=== PATIENT | female | born 1990 | race Caucasian/White ===

== ENCOUNTER 2017-10-29 00:59 | Emergency (ER) | payer OTHER ==
[~2017-10-29] VITALS: Ht 165.1 cm; Wt 86.0 kg
[2017-10-29 01:03] VITALS: Ht 165.1 cm; Wt 86.0 kg
[2017-10-29 02:25] LABS: URINE BLOOD (Dip) POC Negative (NEGATIVE)
[2017-10-29] MEDS ORDERED: KETOROLAC 30 MG INJ IV STA (02:36)
[2017-10-29] MEDS ORDERED: SOD CHLORIDE 0.9% 1,000 ML IV STA (02:36)
[2017-10-29 02:56] LABS: BASOPHILS % 0.3 % (0.0-2.0); EOSINOPHILS % 0.3 % (0.0-7.0); HEMATOCRIT 38.6 % (37.0-47.0); HEMOGLOBIN 13.4 g/dl (12.0-16.0); LYMPHOCYTES # 1.2 10^3/ul (0.8-2.9); MEAN CORPUSCULAR HEMOGLOBIN 32.2 pg (29.0-33.0); MEAN CORPUSCULAR HGB CONC 34.7 g/dl (32.0-37.0); MEAN CORPUSCULAR VOLUME 92.8 fl (82.0-101.0); MEAN PLATELET VOLUME 9.9 fl (7.4-10.4); MONOCYTE # 1.1 10^3/ul (0.3-0.9); MONOCYTES % 9.5 % (0.0-11.0); NEUTROPHIL # 8.8 10^3/ul (1.6-7.5); NEUTROPHILS % 78.5 % (39.0-77.0); PLATELET COUNT 185 10^3/UL (140-415); RED BLOOD COUNT 4.16 10^6/ul (4.20-5.40); RED CELL DISTRIBUTION WIDTH 12.4 % (11.5-14.5); WHITE BLOOD COUNT 11.2 10^3/ul (4.8-10.8)
[2017-10-29 03:00] LABS: ADD UMIC NO; UR ASCORBIC ACID 20 mg/dL (NEGATIVE); UR BILIRUBIN (Dip) NEGATIVE (NEGATIVE); UR BLOOD (Dip) NEGATIVE (NEGATIVE); UR CLARITY CLEAR (CLEAR); UR COLOR YELLOW (YELLOW); UR GLUCOSE (Dip) NEGATIVE (NEGATIVE); UR KETONES (Dip) NEGATIVE (NEGATIVE); UR LEUKOCYTE ESTERASE (Dip) NEGATIVE Leu/ul (NEGATIVE); UR NITRITE (Dip) NEGATIVE (NEGATIVE); UR SPECIFIC GRAVITY (Dip) 1.012 (1.003-1.030); UR TOTAL PROTEIN (Dip) NEGATIVE (NEGATIVE); UR UROBILINOGEN (Dip) NEGATIVE (NEGATIVE)
[2017-10-29] MEDS ORDERED: ACETAMINOPHEN 325 MG TAB PO ONE (03:00)
--- NOTE | 2017-10-29 03:04 | ERD ---
ER Documentation Chief Complaint Chief Complaint flank pain since thursday; diff urinating x 1wk; fever today; tylenol 2130 HPI 27-year-old female presents here to emergency department for complaints of right flank pain radiating to the right lower quadrant that started today and fever. Patient has been having dysuria one week ago, was taking cranberry juice with only mild relief. Patient denies any nausea vomiting diarrhea or constipation. Patient denies any sick contacts. Patient denies any cough runny nose nasal congestion. ROS All systems reviewed and are negative except as per history of present illness. Medications Home Meds Reported Medications [none] Unknown Strength No Conflict Check 10/29/17 Allergies Allergies: Coded Allergies: No Known Allergy (Unverified , 10/29/17) PMhx/Soc Medical and Surgical Hx: pt denies Surgical Hx History of Surgery: No Anesthesia Reaction: No Hx Neurological Disorder: No Hx Respiratory Disorders: No Hx Cardiac Disorders: No Hx Psychiatric Problems: No Hx Miscellaneous Medical Probl: Yes (UTIs) Hx Alcohol Use: No Hx Substance Use: No Hx Tobacco Use: No Smoking Status: Never smoker FmHx Family History: No coronary disease, No diabetes, No other Physical Exam Vitals Vital Signs Date Time Temp Pulse Resp B/P Pulse Ox O2 Delivery O2 Flow Rate FiO2 10/29/17 01:03 101.7 110 20 126/58 100 Physical Exam GENERAL: The patient is well developed and appropriate for usual state of health, in no apparent distress. CHEST: Clear to auscultation bilaterally. There are no rales, wheezes or rhonchi. HEART: Regular rate and rhythm. No murmurs, clicks, rubs or gallops. No S3 or S4. ABDOMEN: Soft, nontender and nondistended. Good bowel sounds. No rebound or guarding. No gross peritonitis. No gross organomegaly or masses. No Olivares sign or McBurney point tenderness. BACK: No midline or flank tenderness. EXTREMITIES: Equal pulses bilaterally. There is no peripheral clubbing, cyanosis or edema. No focal swelling or erythema. Full range of motion. Grossly neurovascularly intact. NEURO: Alert and oriented. Cranial nerves 2-12 intact. Motor strength in all 4 extremities with 5/5 strength. Sensation grossly intact. Normal speech and gait. SKIN: There is no apparent rash or petechia. The skin is warm and dry. HEMATOLOGIC AND LYMPHATIC: There is no evidence of excessive bruising or lymphedema. No gross cervical, axillary, or inguinal lymphadenopathy. Result Diagram: 10/29/17 0245 10/29/17 0245 Results 24 hrs Laboratory Tests Test 10/29/17 02:25 10/29/17 02:45 Bedside Urine pH (LAB) 7.0 Bedside Urine Protein (LAB) Negative Bedside Urine Glucose (UA) Negative Bedside Urine Ketones (LAB) Negative Bedside Urine Blood Negative Bedside Urine Nitrite (LAB) Negative Bedside Urine Leukocyte Esterase (L Trace White Blood Count 11.210^3/ul Red Blood Count 4.1610^6/ul Hemoglobin 13.4g/dl Hematocrit 38.6% Mean Corpuscular Volume 92.8fl Mean Corpuscular Hemoglobin 32.2pg Mean Corpuscular Hemoglobin Concent 34.7g/dl Red Cell Distribution Width 12.4% Platelet Count 62029^3/UL Mean Platelet Volume 9.9fl Neutrophils % 78.5% Lymphocytes % 11.0% Monocytes % 9.5% Eosinophils % 0.3% Basophils % 0.3% Nucleated Red Blood Cells % 0.0/100WBC Neutrophils # 8.810^3/ul Lymphocytes # 1.210^3/ul Monocytes # 1.110^3/ul Eosinophils # 0.010^3/ul Basophils # 0.010^3/ul Nucleated Red Blood Cells # 0.010^3/ul Urine Color YELLOW Urine Clarity CLEAR Urine pH 8.0 Urine Specific [place] 1.012 Urine Ketones NEGATIVEmg/dL Urine Nitrite NEGATIVEmg/dL Urine Bilirubin NEGATIVEmg/dL Urine Urobilinogen NEGATIVEmg/dL Urine Leukocyte Esterase NEGATIVELeu/ul Urine Hemoglobin NEGATIVEmg/dL Urine Glucose NEGATIVEmg/dL Urine Total Protein NEGATIVEmg/dl Sodium Level 140mmol/L Potassium Level 4.2mmol/L Chloride Level 104mmol/L Carbon Dioxide Level 25mmol/L Anion Gap 15 Blood Urea Nitrogen 9mg/dl Creatinine 0.69mg/dl Glucose Level 111mg/dl Calcium Level 9.3mg/dl Total Bilirubin 0.5mg/dl Direct Bilirubin 0.00mg/dl Indirect Bilirubin 0.5mg/dl Aspartate Amino Transf (AST/SGOT) 18IU/L Alanine Aminotransferase (ALT/SGPT) 32IU/L Alkaline Phosphatase 77IU/L Total Protein 7.2g/dl Albumin 4.3g/dl Globulin 2.90g/dl Albumin/Globulin Ratio 1.48 Lipase 63U/L Current Medications Medications (Trade) Dose Ordered Sig/Eloy Route PRN Reason Start Time Stop Time Status Last Admin Dose Admin Sodium Chloride (NS) 1,000 ml @ 1,000 mls/hr Q1H STAT IV 10/29/17 02:36 10/29/17 03:35 DC 10/29/17 02:51 Ketorolac Tromethamine (Toradol) 30 mg ONCE STAT IV 10/29/17 02:36 10/29/17 02:38 DC 10/29/17 02:49 Acetaminophen 650 mg 650 mg ONCE ONCE PO 10/29/17 03:00 10/29/17 03:01 DC 10/29/17 02:49 Piperacillin Sod/ Tazobactam Sod (Zosyn 3.375gm/ 50 ml (Pmx)) 50 ml @ 100 mls/hr ONCE ONCE IV 10/29/17 05:00 10/29/17 05:29 10/29/17 04:54 Patient was given medication for pain here in emergency department, after treatment, patient verbalized feeling much better. Patient's pain is improved. Normal saline IV bolus was given here in emergency department for rehydration, patient tolerated IV fluids. Patient was given medicines for fever control here in the emergency department. After treatment, patient temperature improved and lower. Patient appears well and is hemodynamically stable. PROCEDURE: CT ABDOMEN/PELVIS WITHOUT CONTRAST CLINICAL INDICATION: 27-year-old female with abdominal pain. TECHNIQUE: The study was performed utilizing a GE [employer] logo VCT 64-slice CT scanner. Direct axial sections were obtained through the abdomen and pelvis without the use of intravenous contrast material. Sagittal and coronal reformations were obtained. One or more of the following dose reduction techniques were utilized: automated exposure control, adjustment of the mA and/ or kV according to patient's size and/or the use of iterative reconstruction technique. DICOM images are available. The images were reviewed on a PACS workstation. CTD/vol = 15.2 mGy; Total Exam DLP = 935.9 mGy-cm. COMPARISON: None. FINDINGS: There is trace right basilar subsegmental atelectasis. There is no evidence for significant pleural effusion. The liver has a normal size and contour without focal areas of abnormal density. No intrahepatic nor extrahepatic biliary ductal dilatation is seen. The gallbladder contains a dependent gallstone with peripheral calcification measuring 11 x 11 mm as well as a couple smaller calcified gallstones without significant wall thickening or pericholecystic fluid. The pancreas is without areas of abnormal attenuation. The spleen is identified and has a normal size without abnormal density. The adrenal glands are unremarkable. There is a small punctate nonobstructing right mid renal silvia calculus measuring 2 x 2 mm. The left kidney is without abnormal density, calculi or obstruction. The urinary bladder contains urine. There is retained stool within the ascending and transverse colon without evidence for bowel obstruction. The appendix is retrocecal and is without abnormal thickening or surrounding inflammatory reaction. The uterus is anteflexed. There is no significant pelvic free fluid. The aortoiliac vessels are without aneurysmal dilatation. The osseous structures are intact. IMPRESSION: 1. Cholelithiasis. 2. Punctate 2 mm nonobstructing mid right renal calculus. 3. Prominent retained stool within the ascending colon without evidence for bowel obstruction. 4. No CT evidence for appendicitis. .Vick Alvarado MD, MD Date Time Electronically viewed and signed by .Vick Alvarado MD, on 10/29/2017 03:19 .M/ CC: BART LEAL NP PROCEDURE: ULTRASOUND LIMITED ABDOMEN CLINICAL INDICATION: 27-year-old female with abdominal pain. TECHNIQUE: Multiple sonographic of the right upper quadrant of the abdomen were obtained. The images were reviewed on a PACS workstation. COMPARISON: CT abdomen/pelvis October 29, 2017. FINDINGS: The pancreas is partially visualized and is otherwise without abnormal echogenicity. The liver displays normal echogenicity. The liver measures 18.8 cm in length. No evidence of intrahepatic biliary ductal dilatation is seen. The portal and hepatic veins are unremarkable. The gallbladder contains multiple shadowing stones. The gallbladder wall thickness is within normal limits measuring 2.1 mm. No pericholecystic fluid is seen. The common bile duct measures 3.5 mm and is not dilated. The right kidney displays normal echogenicity. The right kidney measures 12.1 cm in maximal length. No caliectasis or hydronephrosis is seen. No free fluid is seen. IMPRESSION: Cholelithiasis. .Vick Alvarado MD, Date Time Electronically viewed and signed by .Vick Alvarado MD, on 10/29/2017 04:33 .M/ CC: BART LEAL VEHICLE MAINTENANCE SUPERVISOR INFLUENZA A & B BY EIA Final INFLU A&B BY EIA INFLUENZA A NEGATIVE (Ref Range Neg) INFLUENZA B NEGATIVE (Ref Range Neg) Procedures/MDM Medical Decision Making: Patient symptoms of abdominal pain and fever nonspecific at this time, possible viral in origin. There is an incidental finding of a gallbladder filled with gallstones, no symptoms of any inflammatory changes consistent with acute cholecystitis. Patient was evaluated by my attending physician, Dr. Lou, recommended patient to return in 8 hours for reevaluation of symptoms. He recommended me to start IV Zosyn here in the emergency department. There is low suspicion for abdominal emergencies at this time. Patients abdominal exam is normal at this time. Patients radiology exam does not show any abdominal emergencies at this time. There is low suspicion for appendicitis, cholecystitis, abdominal aortic aneurysms or peritonitis at this time. There is low suspicion for sepsis. Patient appears well and is hemodynamically stable. Disposition: Home. Condition: Stable PrescriptionIbuprofen Tylenol [place] and Zofran Instructions: Patient is advised to take medications as prescribed. Patient is advised to rest, increase fluid intake and do brat diet for next 1-2 days and progress as tolerated. Patient is advised that if symptoms are worse, severe abdominal pain, uncontrolled vomiting, high fever, severe flank pain, worst signs and symptoms, to return to the emergency department immediately. Otherwise, patient can follow up with primary care doctor or here in the emergency department 8 hours for reevaluation of symptoms Disclaimer: Inadvertent spelling and grammatical errors are likely due to EHR/ dictation software use and do not reflect on the overall quality of patient care. Also, please note that the electronic time recorded on this note does not necessarily reflect the actual time of the patient encounter. Departure Diagnosis: Primary Impression: Flank pain Additional Impressions: Fever Fever type: unspecified Qualified Code: R50.9 - Fever, unspecified fever cause Gallstones Condition: Stable Patient Instructions: Flank Pain, Uncertain Cause, Gallstones, Fever Control ( Adult) Additional Instructions: Patient is advised to take medications as prescribed. Patient is advised to rest , increase fluid intake and do brat diet for next 1-2 days and progress as tolerated. Patient is advised that if symptoms are worse, severe abdominal pain , uncontrolled vomiting, high fever, severe flank pain, worst signs and symptoms , to return to the emergency department immediately. Otherwise, patient can follow up with primary care doctor or here in the emergency department 8 hours for reevaluation of symptoms BART LEAL NP Oct 29, 2017 03:04
--- NOTE | 2017-10-29 03:19 | RADRPT ---
PROCEDURE: CT ABDOMEN/PELVIS WITHOUT CONTRAST CLINICAL INDICATION: 27-year-old female with abdominal pain. TECHNIQUE: The study was performed utilizing a GE [employer] VCT 64-slice CT scanner. Direct axia l sections were obtained through the abdomen and pelvis without the use of intravenous contrast mate rial. Sagittal and coronal reformations were obtained. One or more of the following dose reduction t echniques were utilized: automated exposure control, adjustment of the mA and/or kV according to pat ient's size and/or the use of iterative reconstruction technique. DICOM images are available. The im ages were reviewed on a PACS workstation. CTD/vol = 15.2 mGy; Total Exam DLP = 935.9 mGy-cm. COMPARISON: None. FINDINGS: There is trace right basilar subsegmental atelectasis. There is no evidence for significant pleural effusion. The liver has a normal size and contour without focal areas of abnormal density. No intr ahepatic nor extrahepatic biliary ductal dilatation is seen. The gallbladder contains a dependent ga llstone with peripheral calcification measuring 11 x 11 mm as well as a couple smaller calcified gal lstones without significant wall thickening or pericholecystic fluid. The pancreas is without areas of abnormal attenuation. The spleen is identified and has a normal size without abnormal density. T he adrenal glands are unremarkable. There is a small punctate nonobstructing right mid renal silvia c alculus measuring 2 x 2 mm. The left kidney is without abnormal density, calculi or obstruction. The urinary bladder contains urine. There is retained stool within the ascending and transverse colon w ithout evidence for bowel obstruction. The appendix is retrocecal and is without abnormal thickening or surrounding inflammatory reaction. The uterus is anteflexed. There is no significant p elvic free fluid. The aortoiliac vessels are without aneurysmal dilatation. The osseous structures a re intact. IMPRESSION: 1. Cholelithiasis. 2. Punctate 2 mm nonobstructing mid right renal calculus. 3. Prominent retained stool within the ascending colon without evidence for bowel obstruction. 4. No CT evidence for appendicitis. .Vick Alvarado MD, MD Date Time Electronically viewed and signed by .Vick Alvarado MD, on 10/29/2017 03:19 .[place]/
[2017-10-29 03:31] LABS: ALBUMIN 4.3 g/dl (3.3-4.9); ALBUMIN/GLOBULIN RATIO 1.48; BILIRUBIN,INDIRECT 0.5 mg/dl (0-1.1); BILIRUBIN,TOTAL 0.5 mg/dl (0.2-1.3); CALCIUM 9.3 mg/dl (8.4-10.2); CREATININE 0.69 mg/dl (0.44-1.00); POTASSIUM 4.2 mmol/L (3.5-5.1); TOTAL PROTEIN 7.2 g/dl (6.1-8.1)
--- NOTE | 2017-10-29 04:33 | RADRPT ---
PROCEDURE: ULTRASOUND LIMITED ABDOMEN CLINICAL INDICATION: 27-year-old female with abdominal pain. TECHNIQUE: Multiple sonographic of the right upper quadrant of the abdomen were obtained. The imag es were reviewed on a PACS workstation. COMPARISON: CT abdomen/pelvis October 29, 2017. FINDINGS: The pancreas is partially visualized and is otherwise without abnormal echogenicity. The liver displays normal echogenicity. The liver measures 18.8 cm in length. No evidence of intrah epatic biliary ductal dilatation is seen. The portal and hepatic veins are unremarkable. The gallbladder contains multiple shadowing stones. The gallbladder wall thickness is within normal limits measuring 2.1 mm. No pericholecystic fluid is seen. The common bile duct measures 3.5 mm and is not dilated. The right kidney displays normal echogenicity. The right kidney measures 12.1 cm in maximal length. No caliectasis or hydronephrosis is seen. No free fluid is seen. IMPRESSION: Cholelithiasis. .Vick Alvarado MD, MD Date Time Electronically viewed and signed by .Vick Alvarado MD, on 10/29/2017 04:33 .M/
[2017-10-29] MEDS ORDERED: PIPER-TAZO 3.375 GM IV (PMX) 50 ML IV ONE (05:00)
[2017-10-29 05:27] VITALS: BP 98/53; PULSE 79; RESP 19; TEMP 98.3
--- NOTE | 2017-10-29 05:47 | RADRPT ---
PROCEDURE: XR Chest. CLINICAL INDICATION: fever TECHNIQUE: PA and Lateral views of the chest were obtained. COMPARISON: None. FINDINGS: The heart is within normal limits in size. There is no evidence of pulmonary vascular congestion acu te lung consolidation pleural effusions and pneumothorax. IMPRESSION: No evidence of acute cardiopulmonary disease. RPTAT:AAJJ Physician Liliam Date Time Electronically viewed and signed by Criselda Fan Physician on 10/29/2017 05:47 BM/
[2017-10-29] MEDS ORDERED: HYDR-906 PO (05:49)
[2017-10-29] MEDS ORDERED: ONDA4TAB14 PO (05:49)
[2017-10-29] MEDS ORDERED: IBUP-1542 PO (05:49)
[2017-10-29] MEDS ORDERED: IBUP800T25 PO (19:25)
== END 2017-10-29 06:00 | disposition home or self-care (01) ==
LOC: FTE 00:59
DX: K80.20 Calculus of gallbladder without cholecystitis without obstruction (principal)
CPT/HCPCS: 36415; 71010; 74176; 76705; 80053; 81003; 83690; 85025; 87086; 87400; 96374; 96375; 99285; J1885; J2543; J7030

== ENCOUNTER 2017-10-29 16:37 | Emergency (ER) | payer OTHER ==
[~2017-10-29] VITALS: Wt 86.5 kg
[~2017-10-29 16:37] MED LIST: HYDR-906 PO; IBUP-1542 PO; ONDA4TAB14 PO
[2017-10-29 18:07] LABS: BASOPHILS % 0.2 % (0.0-2.0); EOSINOPHILS % 0.1 % (0.0-7.0); HEMATOCRIT 36.9 % (37.0-47.0); HEMOGLOBIN 12.6 g/dl (12.0-16.0); LYMPHOCYTES # 1.1 10^3/ul (0.8-2.9); MEAN CORPUSCULAR HEMOGLOBIN 32.6 pg (29.0-33.0); MEAN CORPUSCULAR HGB CONC 34.1 g/dl (32.0-37.0); MEAN CORPUSCULAR VOLUME 95.6 fl (82.0-101.0); MEAN PLATELET VOLUME 10.3 fl (7.4-10.4); MONOCYTES % 8.6 % (0.0-11.0); NEUTROPHIL # 9.9 10^3/ul (1.6-7.5); NEUTROPHILS % 81.8 % (39.0-77.0); PLATELET COUNT 183 10^3/UL (140-415); RED BLOOD COUNT 3.86 10^6/ul (4.20-5.40); RED CELL DISTRIBUTION WIDTH 12.4 % (11.5-14.5)
--- NOTE | 2017-10-29 18:19 | ERD ---
ER Documentation Chief Complaint Chief Complaint PT HERE FOR FF-UP, SEEN THIS MORNING DX OF GALLSTONES HPI This is a 27-year-old female here for recheck. The patient was seen here earlier this morning and had a fever with right back pain and had a CAT scan that showed gallstones along with an ultrasound with gallstones however there is no appendicitis or cholecystitis. Patient's blood work was unremarkable and her urinalysis was negative. Patient says she was told to return here in 8 hours. The patient says that she will develop a fever up to 103 but Tylenol does relieve it. She says she is not having any worsening of her right back pain or abdominal pain. No nausea vomiting or diarrhea. Denies any sore throat. She says she does have off-and-on dull headache and body aches. She says she has a slight cough but her chest x-ray was negative last night. No photophobia no stiff neck ROS All systems reviewed and are negative except as per history of present illness. Medications Home Meds Active Scripts Ondansetron (Ondansetron Odt) 4 Mg Tab.rapdis, 4 MG PO Q6H Y for NAUSEA AND/OR VOMITING, #20 TAB Prov:BART LEAL NP 10/29/17 Hydrocodone/Acetaminophen ([place] 5-325 Tablet) 1 Each Tablet, 1 TAB PO Q6H Y for PAIN, #20 TAB Prov:BART LEAL NP 10/29/17 Ibuprofen* (Motrin*) 600 Mg Tab, 600 MG PO Q6H Y for PAIN AND OR ELEVATED TEMP, #30 TAB Prov:BART LEAL NP 10/29/17 Discontinued Reported Medications [none] Unknown Strength No Conflict Check 10/29/17 Allergies Allergies: Coded Allergies: No Known Allergy (Unverified , 10/29/17) PMhx/Soc History of Surgery: No Anesthesia Reaction: No Hx Neurological Disorder: No Hx Respiratory Disorders: No Hx Cardiac Disorders: No Hx Psychiatric Problems: No Hx Miscellaneous Medical Probl: Yes (UTIs) Hx Alcohol Use: No Hx Substance Use: No Hx Tobacco Use: No Smoking Status: Never smoker FmHx Family History: No coronary disease Physical Exam Vitals Vital Signs Date Time Temp Pulse Resp B/P Pulse Ox O2 Delivery O2 Flow Rate FiO2 10/29/17 16:41 100.3 107 18 118/56 98 Physical Exam Const: Well-developed, well-nourished, nontoxic well-appearing Head: Atraumatic, normocephalic Eyes: Normal Conjunctiva, PERRLA, EOMI, normal sclera, no nystagmus ENT: Normal External Ears, Nose and Mouth, moist mucus membranes. Neck: Full range of motion. No meningismus, no lymphadenopathy. Resp: Clear to auscultation bilaterally, no wheezing, rhonchi, rales Cardio: Regular rate and rhythm, no murmurs, S1 S2 present Abd: Soft, non tender x 4, non distended. Normal bowel sounds, no guarding or rebound, no pulsitile abdominal masses or bruits Skin: No petechiae or rashes, no ecchymosis , no maculopapular rash Back: No midline or flank tenderness Ext: No cyanosis, or edema, FROM x 4, normal inspection, neurovascularly intact x 4 Neur: Awake and alert, STR 5/5 x 4, sensation intact x 4, no focal findings, cerebellum intact Psych: Normal Mood and Affect Result Diagram: 10/29/17175810/29/171758 Results 24 hrs Laboratory Tests Test 10/29/17 17:59 White Blood Count 12.010^3/ul Red Blood Count 3.8610^6/ul Hemoglobin 12.6g/dl Hematocrit 36.9% Mean Corpuscular Volume 95.6fl Mean Corpuscular Hemoglobin 32.6pg Mean Corpuscular Hemoglobin Concent 34.1g/dl Red Cell Distribution Width 12.4% Platelet Count 17775^3/UL Mean Platelet Volume 10.3fl Neutrophils % 81.8% Lymphocytes % 9.0% Monocytes % 8.6% Eosinophils % 0.1% Basophils % 0.2% Nucleated Red Blood Cells % 0.0/100WBC Neutrophils # 9.910^3/ul Lymphocytes # 1.110^3/ul Monocytes # 1.010^3/ul Eosinophils # 0.010^3/ul Basophils # 0.010^3/ul Nucleated Red Blood Cells # 0.010^3/ul Sodium Level 138mmol/L Potassium Level 4.1mmol/L Chloride Level 105mmol/L Carbon Dioxide Level 24mmol/L Anion Gap 13 Blood Urea Nitrogen 8mg/dl Creatinine 0.68mg/dl Glucose Level 112mg/dl Calcium Level 8.4mg/dl Total Bilirubin 0.4mg/dl Direct Bilirubin 0.00mg/dl Indirect Bilirubin 0.4mg/dl Aspartate Amino Transf (AST/SGOT) 20IU/L Alanine Aminotransferase (ALT/SGPT) 27IU/L Alkaline Phosphatase 68IU/L Total Protein 7.0g/dl Albumin 4.0g/dl Globulin 3.00g/dl Albumin/Globulin Ratio 1.33 Procedures/MDM PROCEDURE: US Abdomen. CLINICAL INDICATION: abdominal pain TECHNIQUE: Multiple real-time images were acquired of the patient's right upper quadrant abdomen and retroperitoneum utilizing a high resolution transducer. COMPARISON: US ABDOMEN 10/29/2017 FINDINGS: The liver demonstrates normal echogenicity. The liver is normal in size and no focal solid lesions are seen. The liver measures 16.8 cm in length. The portal vein is patent with normal direction of flow. No intrahepatic biliary dilatation is seen. There is a 1.6 cm single calcified stone in the gallbladder. There is no pericholecystic fluid or gallbladder wall thickening. The common bile duct measures 3 mm in maximal dimension. The visualized portions of the pancreas are unremarkable. The tail of the pancreas is not seen. No free fluid is identified. The right kidney is normal in size, and demonstrate normal echogenicity and cortical thickness. The right kidney measures 12.3 cm in long dimension. There is no evidence of hydronephrosis. There are no kidney stones. RPTAT: AA IMPRESSION: Single calcified stone within the gallbladder. .Daniel Rocha MD, Date Time Electronically viewed and signed by .Daniel Rocha MD, MD on 10/29/2017 18: 21 .S/ CC: JEROME DAVISON DO The patient's workup is negative again her white count is the same. Her gall bladder does not look infected she has one stone. I feel she likely has a viral type illness she has no UTI or pneumonia cholecystitis appendicitis she has no abdominal pain. I did discuss with her at length signs to watch for to return. Will treat conservatively with Motrin or Tylenol at this time Departure Diagnosis: Primary Impression: Viral illness Condition: Stable JEROME DAVISON DO Oct 29, 2017 18:19
--- NOTE | 2017-10-29 18:22 | RADRPT ---
PROCEDURE: US Abdomen. CLINICAL INDICATION: abdominal pain TECHNIQUE: Multiple real-time images were acquired of the patient's right upper quadrant abdomen a nd retroperitoneum utilizing a high resolution transducer. COMPARISON: US ABDOMEN 10/29/2017 FINDINGS: The liver demonstrates normal echogenicity. The liver is normal in size and no focal solid lesions are seen. The liver measures 16.8 cm in length. The portal vein is patent with normal direction of f low. No intrahepatic biliary dilatation is seen. There is a 1.6 cm single calcified stone in the gallbladder. There is no pericholecystic fluid or ga llbladder wall thickening. The common bile duct measures 3 mm in maximal dimension. The visualized portions of the pancreas are unremarkable. The tail of the pancreas is not seen. No free fluid is identified. The right kidney is normal in size, and demonstrate normal echogenicity and cortical thickness. The right kidney measures 12.3 cm in long dimension. There is no evidence of hydronephrosis. There are no kidney stones. RPTAT: AA IMPRESSION: Single calcified stone within the gallbladder. .Daniel Rocha MD, Date Time Electronically viewed and signed by .Daniel Rocha MD, on 10/29/2017 18:21 .S/
[2017-10-29 18:29] LABS: ALBUMIN/GLOBULIN RATIO 1.33; BILIRUBIN,INDIRECT 0.4 mg/dl (0-1.1); BILIRUBIN,TOTAL 0.4 mg/dl (0.2-1.3); CALCIUM 8.4 mg/dl (8.4-10.2); CREATININE 0.68 mg/dl (0.44-1.00); POTASSIUM 4.1 mmol/L (3.5-5.1)
[2017-10-29] MEDS ORDERED: IBUP800T25 PO (19:25)
[2017-10-29] MEDS ORDERED: IBUPROFEN 800 MG TAB PO ONE (19:30)
[2017-10-29 19:49] VITALS: BP 120/60; PULSE 82; RESP 19; TEMP 100.3
== END 2017-10-29 19:51 | disposition home or self-care (01) ==
LOC: E/R 16:37
DX: B34.9 Viral infection, unspecified (principal)
CPT/HCPCS: 76705; 80053; 85025